=== PATIENT | male | born 1975 | race Caucasian/White ===

== ENCOUNTER → 2016-03-30 | Outpatient (CLI) | payer BC, OTHER ==
[~2016-03-30] MED LIST: ADVIN25050 INH; AZIT250T PO; MULT-506 PO; OMEG10007 PO
[2016-04-03 01:03] LABS: CHLAMYDIA TRACH RNA*** NOT DETECTED (NOT DETECTED); GC (NEIS GONORRHOEAE)RNA** NOT DETECTED (NOT DETECTED)
== END | disposition home or self-care (01) ==
LOC: C.LABPVFM 10:57
PROVIDERS: ATTEND Nurse Practitioner Family
DX: R30.0 Dysuria (principal)